=== PATIENT | male | born 1960 | race Caucasian/White ===

== ENCOUNTER 2023-12-20 05:42 | Day surgery (SDC) | payer OTHER ==
[2023-12-20] MEDS: Lactated Ringers 1,000 ML IV SCH (06:07)
[2023-12-20 06:42] VITALS: RESP 18; TEMP 97.3
[2023-12-20] MEDS ORDERED: DIPRIVAN 200 MG/20 ML IV ONE ×2 (08:00→11:47)
[2023-12-20 09:06] VITALS: BP 126/70; PULSE 59; O2SAT 97
--- NOTE | 2023-12-21 09:48 | OP ---
SURGERY DATE/TIME: 12/20/2023 [id number] PREOPERATIVE DIAGNOSIS: Screening exam. POSTOPERATIVE DIAGNOSIS: Normal colon. PROCEDURE: Colonoscopy. SURGEON: Tj Barcenas MD. ANESTHESIA: Medications given by the anesthesia department. INDICATIONS: The patient is a 63-year-old white male presenting now for a screening colonoscopy. He was apprised of the risks of the procedure including the risk of perforation, phlebitis, untoward reaction to medication, bleeding, and missed lesions. The patient verbalized his understanding and desired to have procedure performed. DESCRIPTION OF PROCEDURE AND FINDINGS: The patient was given medication by the anesthesia department. He had continuous pulse oximetry, ECG monitoring, and intermittent blood pressure monitoring during the examination. He was placed in left lateral decubitus position. Digital rectal examination was performed and revealed normal anal sphincter tone and no masses. The flexible Olympus videocolonoscope was used to intubate the rectum. A view of the colon was developed sequentially to the cecum. Upon insertion and withdrawal, including retroflexed view in the rectum, no mucosal lesions were encountered. The scope was removed. The patient tolerated the procedure well and was sent back to outpatient recovery in good condition. The prep was noted to be fair to good.
== END 2023-12-20 09:06 | disposition home or self-care (01) ==
LOC: SDC 05:42
PROVIDERS: ATTEND Family Medicine
DX: Z12.11 Encounter for screening for malignant neoplasm of colon (principal)
CPT/HCPCS: 93005; J2704